=== PATIENT | female | born 1940 | race Hispanic/Latino ===

== ENCOUNTER 2024-02-16 20:21 | Emergency (ER) | payer MEDICARE ==
[~2024-02-16] VITALS: Ht 157.5 cm; Wt 61.2 kg
[2024-02-16 20:24] VITALS: TEMP 98.6
[2024-02-16] MEDS: acetaMINOPHEN 325 MG TAB PO ONE (21:50)
[2024-02-16 22:23] VITALS: BP 162/45; PULSE 72; RESP 18; O2SAT 97
== END 2024-02-17 00:18 | disposition home or self-care (01) ==
LOC: EDH 20:21
DX: S30.0XXA Contusion of lower back and pelvis, initial encounter (principal); I10 Essential (primary) hypertension; Z88.5 Allergy status to narcotic agent; W18.39XA Other fall on same level, initial encounter; Y93.89 Activity, other specified; Y92.89 Other specified places as the place of occurrence of the external cause; Y99.8 Other external cause status
CPT/HCPCS: 72100; 72131; 72220